=== PATIENT | female | born 1955 | race American Indian/Alaskan Native ===

== ENCOUNTER 2017-08-03 09:25 | Outpatient (CLI) | payer OTHER ==
--- NOTE | 2017-08-03 12:04 | Ultrasound Report ---
Complete abdominal ultrasound: Left upper quadrant pain. The pancreatic body and head regions appear unremarkable but the tail is not visualized. The liver and spleen are echogenically unremarkable. The gallbladder has been removed. The CBD diameter is 6 mm. The right renal length is 10.3 cm and the left length is 10.8 cm. Both kidneys are echogenically unremarkable. The transverse diameter of the proximal abdominal aorta is 2 cm, the mid aorta is 1.7 cm, and the distal aorta is 1.5 cm. Impressions: No pathology identified.
== END 2017-08-03 09:26 | disposition home or self-care (01) ==
LOC: SPVWC 09:25
PROVIDERS: ATTEND Internal Medicine
DX: R10.12 Left upper quadrant pain (principal); Z90.49 Acquired absence of other specified parts of digestive tract
CPT/HCPCS: 76700